=== PATIENT | male | born 1990 | race Caucasian/White ===

== ENCOUNTER 2018-01-04 11:23 | Emergency (ER) | payer SELFPAY ==
[~2018-01-04] VITALS: Ht 177.8 cm; Wt 95.4 kg
[~2018-01-04 11:23] MED LIST: FLEXERIL10 MG; FLEXERIL10 MG PO; PAMELOR75 MG PO; PERPHENAZINE4 MG PO
[2018-01-04] MEDS ORDERED: PERCOCET 5/31 TABLET PO (14:47)
[2018-01-04 15:24] VITALS: BP 134/85
== END 2018-01-04 15:36 | disposition home or self-care (01) ==
LOC: TRA 11:23 → EME 11:23 → TRA 15:36
DX: S00.03XA Contusion of scalp, initial encounter (principal); W22.8XXA Striking against or struck by other objects, initial encounter; Y93.H3 Activity, building and construction; F32.9 Major depressive disorder, single episode, unspecified; F90.9 Attention-deficit hyperactivity disorder, unspecified type; F20.9 Schizophrenia, unspecified; F31.9 Bipolar disorder, unspecified; F17.200 Nicotine dependence, unspecified, uncomplicated; Z86.79 Personal history of other diseases of the circulatory system
CPT/HCPCS: 70450; 72125; 99281; 99284